=== PATIENT | female | born 1975 | race Caucasian/White ===

== ENCOUNTER 2018-10-14 09:20 | Day surgery (SDC) | payer OTHER, MEDICAID ==
[2018-10-14] MEDS ORDERED: MIDAZOLAM 1 MG/ML 2 ML INJ ×2 (11:29)
[2018-10-14] MEDS ORDERED: FENTAnyl 50 MCG/ML VIAL (11:29)
== END 2018-10-14 14:01 | disposition home or self-care (01) ==
LOC: GIL 09:20
DX: Z12.11 Encounter for screening for malignant neoplasm of colon (principal); D12.4 Benign neoplasm of descending colon; K64.8 Other hemorrhoids
CPT/HCPCS: 45380; 88305